=== PATIENT | female | born 1960 | race Caucasian/White ===

== ENCOUNTER 2019-06-22 12:29 | Emergency (ER) | payer OTHER ==
--- NOTE | 2019-06-22 12:40 | PDOC ---
History of Present Illness - History of Present Illness Initial Comments: The pt is a 58F w/ a history of HLD, HTN, and DM who presents for evaluation of 1 week of left neck/shoulder pain after a mechanical fall from standing. She states she slipped while walking outside. Since that time she has had intermittent achy neck/shoulder/upper arm aching/tightness. She denies changes in sensation. She has tried taking Advil 400mg for her pain with mild relief. She denies LOC, wound, fevers/chills, changes in sensation, or any other injury or pain. She has not been evaluated for this pain before. 06/22/19 12:33 <Migue David - Last Filed: 06/22/19 13:13> <Araceli Dallas - Last Filed: 06/22/19 18:02> - General Chief Complaint: Injury Stated Complaint: left arm pain Time Seen by Provider: 06/22/19 12:32 Attending Attestation - Resident Resident Name: Migue David - ED Attending Attestation I have performed the following: I have examined & evaluated the patient, The case was reviewed & discussed with the resident, I agree w/resident's findings & plan, Exceptions are as noted - HPI HPI: 58 y/o female c/o neck and upper back pain after straining self 2 days ago 06/22/19 17:56 - Physicial Exam PE: Alert oriented x 3 moderate pain at palpation on the medial aspect of scapula and lateral neck 06/22/19 17:59 - Medical Decision Making X rays were read as negative , NSAID and Muscle relaxants prescribed 06/22/19 18:01 <Araceli Dallas - Last Filed: 06/22/19 18:02> Past History - Past Medical History Anemia: No Asthma: No Cancer: No Cardiac Disorders: No CVA: No COPD: No CHF: No Dementia: No Diabetes: Yes GI Disorders: Yes (GERD) Disorders: No HTN: Yes Hypercholesterolemia: Yes Kidney Stones: Yes Liver Disease: No Seizures: No Thyroid Disease: No - Surgical History Abdominal Surgery: Yes (LIPSUCTION OF ABDOMEN) Appendectomy: No Cardiac Surgery: No Cholecystectomy: No Lung Surgery: No Neurologic Surgery: No Orthopedic Surgery: Yes (FX OF RIGHT FOOT) - Suicide/Smoking/Psychosocial Hx Smoking Status: Yes Smoking History: Current every day smoker Have you smoked in the past 12 months: Yes Number of Cigarettes Smoked Daily: 4 'Breaking Loose' booklet given: 12/29/15 Hx Alcohol Use: Yes Drug/Substance Use Hx: No Substance Use Type: Alcohol Hx Substance Use Treatment: No <Migue David - Last Filed: 06/22/19 13:13> <Araceli Dallas - Last Filed: 06/22/19 18:02> - Past Medical History Allergies/Adverse Reactions: Allergies Allergy/AdvReac Type Severity Reaction Status Date / Time Iodinated Contrast Media Allergy Severe Difficulty Verified 06/12/16 09:31 [Iodinated Contrast Media - Breathing IV Dye] Home Medications: Ambulatory Orders Aspirin [Aspir 81] 81 mg PO DAILY 04/29/14 Multivits, Melecio, Min/Folic Acid [Multi For Her 50 Plus Softgel] 400 mcg PO DAILY capsule 04/29/14 Losartan Potassium 50 mg PO DAILY tablet 07/19/16 Rosuvastatin Calcium [Crestor] 20 mg PO DAILY tablet 07/19/16 Dapagliflozin Propanediol [Farxiga] 10 mg PO DAILY tablet 03/06/17 Cyclobenzaprine HCl [Flexeril 10 mg] 10 mg PO BID PRN #6 tablet 06/22/19 Review of Systems - Review of Systems Able to Perform ROS?: Yes Comments:: GENERAL/CONSTITUTIONAL: No fever or chills. No weakness HEAD, EYES, EARS, NOSE AND THROAT: No change in vision. No sore throat CARDIOVASCULAR: No chest pain or shortness of breath RESPIRATORY: Denies cough, hemoptysis GASTROINTESTINAL: No nausea, vomiting, diarrhea or constipation GENITOURINARY: No dysuria, frequency, or change in urination SKIN: No rash NEUROLOGIC: No headache, vertigo, loss of consciousness, or change in strength/ sensation ENDOCRINE: No increased thirst. No abnormal weight change HEMATOLOGIC/LYMPHATIC: No anemia, easy bleeding, or history of blood clots ALLERGIC/IMMUNOLOGIC: No hives or skin allergy 06/22/19 12:32 Is the patient limited Serbian proficient: No <Migue David - Last Filed: 06/22/19 13:13> *Physical Exam - Vital Signs Vital Signs Temp Pulse Resp BP Pulse Ox 98.8 F 86 20 130/87 96 06/22/19 12:30 06/22/19 12:30 06/22/19 12:30 06/22/19 12:30 06/22/19 12:30 06/22/19 13:15 - Physical Exam Comments: GENERAL: Awake, alert, and oriented to person/place/time, in no acute distress HEAD: No signs of trauma, normocephalic, atraumatic EYES: PERRLA, EOMI, sclera anicteric, conjunctiva clear ENT: Hearing grossly normal, nares patent, oropharynx clear without exudates. Moist mucosa LUNGS: No distress, speaks in full sentences, clear to auscultation bilaterally HEART: Regular rate and rhythm, normal S1 and S2, no murmurs appreciated, peripheral pulses normal and equal bilaterally EXTREMITIES: Full ROM of b/l upper extremities, mild suprascapular and left paraspinous TTP, no shoulder/elbow bony TTP; strength 5/5 throughout NEUROLOGICAL: Cranial nerves II through XII grossly intact. Normal speech, normal gait, no focal sensorimotor deficits SKIN: Warm, Dry 06/22/19 12:33 <Migue David - Last Filed: 06/22/19 13:13> - Vital Signs Last Vital Signs Temp Pulse Resp BP Pulse Ox 98.8 F 86 20 130/87 96 06/22/19 12:30 06/22/19 12:30 06/22/19 12:30 06/22/19 12:30 06/22/19 12:30 <Araceli Dallas S - Last Filed: 06/22/19 18:02> ED Treatment Course - Medications Given in the ED: ED Medications Discontinued Medications Generic Name Dose Route Start Last Admin Trade Name Brockq PRN Reason Stop Dose Admin Acetaminophen 975 mg 06/22/19 12:41 06/22/19 12:54 Tylenol - PO 06/22/19 12:42 975 mg ONCE ONE Administration Lidocaine 1 patch 06/22/19 12:41 06/22/19 12:54 Lidoderm Patch - TP 06/22/19 12:42 1 patch ONCE ONE Administration <Araceli Dallas S - Last Filed: 06/22/19 18:02> Medical Decision Making - Medical Decision Making The pt is a 58F w/ a history of HTN, HLD, and DM who presents for evaluation of 1 week of intermittent achy left neck/shoulder pain likely 2/2 spasm. Low suspicion for fx given full range of motion, mechanism of injury, and no neurologic deficits ED Course Tylenol, Lidoderm patch Arm sling provided Rx for Flexeril x6 Plan for D/C w/ PCP f/u Discharge instructions and return precautions given Pt in agreement and verbalized understanding Dispo: home 06/22/19 13:08 <Migue David - Last Filed: 06/22/19 13:13> *DC/Admit/Observation/Transfer - Discharge Dispostion Decision to Admit order: No <Migue David - Last Filed: 06/22/19 13:13> <Araceli Dallas - Last Filed: 06/22/19 18:02> Diagnosis at time of Disposition: Muscle spasm - Discharge Dispostion Disposition: HOME Condition at time of disposition: Stable - Prescriptions Prescriptions: Cyclobenzaprine HCl [Flexeril 10 mg] 10 mg PO BID PRN #6 tablet PRN Reason: Muscle Spasms - Referrals Referrals: Care, Primary [Other] - Patient Instructions Printed Discharge Instructions: DI for Musculoskeletal Pain Additional Instructions: You were seen in the Emergency Department for evaluation of neck/arm pain. Based on your exam, it is not likely that you have a fracture at this time. For pain you may take Tylenol 650mg every 6 hours and Ibuprofen 600mg every 6-8 hours, alternating them each time. A prescription for Flexeril was sent to the pharmacy that you specified, take only if the Tylenol and Advil are not adequate , and do not take before driving. Please follow up with your primary care provider and review the handout provided at discharge. Return to the Emergency Department if you develop fevers/chills, changes in sensation, weakness, worsening symptoms, or any new/concerning symptoms.
[2019-06-22] MEDS ORDERED: LIDOCAINE 5% TOPICAL PATCH TP ONE (12:41)
[2019-06-22] MEDS ORDERED: ACETAMINOPHEN 325 MG TABLET (FP) PO ONE (12:41)
[2019-06-22 12:46] VITALS: BP 130/87; PULSE 86; TEMP 98.8; BMI 25.9
[2019-06-22] MEDS ORDERED: ACETAMINOPHEN 325 MG TABLET (FP) ONE (12:50)
[2019-06-22] MEDS ORDERED: LIDOCAINE 5% TOPICAL PATCH ONE (12:50)
[2019-06-22] MEDS ORDERED: LIDOCAINE PATCH REMOVAL MC SCH (22:00)
== END 2019-06-22 13:20 | disposition home or self-care (01) ==
LOC: FER 12:29
DX: R25.2 Cramp and spasm (principal); I10 Essential (primary) hypertension; E78.5 Hyperlipidemia, unspecified; E11.9 Type 2 diabetes mellitus without complications
CPT/HCPCS: 99281-25